=== PATIENT | female | born 1955 | race Hispanic/Latino ===

== ENCOUNTER 2018-01-11 01:26 | Emergency (ER) | payer BC, OTHER ==
[~2018-01-11] VITALS: Ht 154.9 cm; Wt 68.0 kg
--- OUTSIDE RECORDS SUMMARY | 2018-01-11 01:29 | XMS REPORT | Summary of Care ---
Author Author [facility] Organization [facility] Address Unknown Phone Unavailable Encounter SHA Ortiz(SUSAN) [id number] Date(s): 05/19/16 - 06/17/16 [facility] [address] [place] [address]- Discharge Disposition: Home or Self Care Attending Physician: Sarah Robles MD Referring Physician: Sarah Robles MD Vital Signs No data available for this section Problem List Condition Effective Dates Status Health Status Informant Knee pain(Confirmed) Active Benign essential Active HTN(Confirmed) Low serum vitamin Active D(Confirmed) 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 Previous Treatment: None. IV drug use: No. Drug use interferes with work/home: No. Ready to change: No. Household substance abuse concerns: No. Cessation Education Provided: No. Alcohol Never, Previous treatment: None. Alcohol use interferes with work or home: No. Drinks more than intended: No. Others hurt by drinking: No. Ready to change: No. Household alcohol concerns: No. Smoking Status Never smoker; Previous treatment: None; Ready to change: No; Concerns about tobacco use in household: No; Exposure to Tobacco Smoke None; Cigarette Smoking Last 365 Days No; Reg Smoking Cessation Counseling No Assessment and Plan No data available for this section
--- OUTSIDE RECORDS SUMMARY | 2018-01-11 01:29 | XMS REPORT | Summary of Care ---
Author Author [facility] Organization [facility] Address Unknown Phone Unavailable Encounter SHA Ortiz(SUSAN) [id number] Date(s): 07/02/16 - 07/02/16 [facility] [address] [place] [address]- [phone] Discharge Disposition: Home or Self Care Attending Physician: Evelio Carrillo MD Referring Physician: Evelio Carrillo MD Vital Signs 1 2 3 Most recent to oldest [Reference Range]: 157.48 cm (06/28/16 9:40 AM) Height 98.5 DegF (06/28/16 9:40 AM) Temperature Oral [96.4-99.1 DegF] 102/62 mmHg (07/02/16 10:00 AM) 87/46 mmHg *LOW* (07/02/16 9:45 AM) 85/49 mmHg *LOW* (07/02/16 9:41 AM) Blood Pressure [90-140/60-90 mmHg] 19 BRMIN (07/02/16 10:00 AM) 17 BRMIN (07/02/16 9:45 AM) 16 BRMIN (07/02/16 9:41 AM) Respiratory Rate [14-20 BRMIN] 60 bpm (06/28/16 9:40 AM) Peripheral Pulse Rate [60-100 bpm] 73.239 kg (06/28/16 9:40 AM) Weight 29.53 m2 (06/28/16 9:40 AM) Body Mass Index Problem List Condition Effective Dates Status Health Status Informant Knee pain(Confirmed) Active Benign essential Active HTN(Confirmed) Low serum vitamin Active D(Confirmed) Diabetes(Confirmed) Active 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 ) Acid Active reflux(Confirmed) Hypertension(Confirm Active ed) Language Active Barrier(Confirmed) Major Active depression(Confirmed ) Hyperlipidemia, Active mixed(Confirmed) Obesity(Confirmed) Active Thyroid disorder Active screen(Confirmed) Allergies, Adverse Reactions, Alerts Substance Reaction Severity Status NKDA Active Medications aspirin 81 mg, PO, Daily, 0 Refill(s) Start Date: 06/28/16 Status: Ordered sodium chloride 0.9% 1000 ml INJ 1,000 mL 1,000 mL, Rate: 25 ml/hr, Infuse over: 40 hr, Route: IV, Dosing Weight 73.239 kg , Total Volume: 1,000, Start date: 07/02/16 7:12:00 CDT, Duration: 30 day, Stop date: 08/01/16 7:11:00 CDT Start Date: 07/02/16 Stop Date: 07/02/16 Status: Discontinued Results ELECTROLYTES Most recent to 1 oldest [Reference Range]: Sodium Lvl [135-145 140 mEq/L mEq/L] (06/28/16 9:55 AM) Potassium Lvl 3.9 mEq/L [3.5-5.1 mEq/L] (06/28/16 9:55 AM) Chloride Lvl [95-109 102 mEq/L mEq/L] (06/28/16 9:55 AM) CO2 [24-32 mEq/L] 28 mEq/L (06/28/16 9:55 AM) AGAP [10.0-20.0 13.9 mEq/L mEq/L] (06/28/16 9:55 AM) CHEM PANEL Most recent to 1 oldest [Reference Range]: Creatinine Lvl 0.63 mg/dL [0.50-1.40 mg/dL] (06/28/16 9:55 AM) eGFR 96 mL/min/1.73m2 1 *NA* (06/28/16 9:55 AM) BUN [7-22 mg/dL] 14 mg/dL (06/28/16 9:55 AM) Glucose Lvl [70-99 108 mg/dL mg/dL] *HI* (06/28/16 9:55 AM) Calcium Lvl 9.7 mg/dL [8.5-10.5 mg/dL] (06/28/16 9:55 AM) 1Result Comment: The eGFR is calculated using the CKD-EPI formula. In most young, healthy individuals the eGFR will be >90 mL/min/1.73m2. The eGFR declines with age. An eGFR of 60-89 may be normal in some populations, particularly the elderly, for whom the CKD-EPI formula has not been extensively validated. Use of the eGFR is not recommended in the following populations: Individuals with unstable creatinine concentrations, including patients and those with serious co-morbid conditions. Patients with extremes in muscle mass or diet. The data above are obtained from the National Kid[employer] Disease Education Program ( NKDEP) which additionally recommends that when the eGFR is used in patients with extremes of body mass index for purposes of drug dosing, the eGFR should be mul tiplied by the estimated BMI. Immunizations No data available for this section Procedures Procedure Date Related Diagnosis Body Site Papanicolaou smear taken 2015 Mammogram 2013 Colonoscopy 2006 Social History Social History Type [...] alcohol concerns: No. Smoking Status Never smoker; Exposure to Tobacco Smoke None; Cigarette Smoking Last 365 Days No; Reg Smoking Cessation Counseling No Assessment and Plan No data available for this section
--- OUTSIDE RECORDS SUMMARY | 2018-01-11 01:29 | XMS REPORT | Summary of Care ---
Author Author [facility] Organization [facility] Address Unknown Phone Unavailable Encounter HQ Diana(SUSAN) [id number] Date(s): 08/15/16 - 08/19/16 [facility] [address] [place] [address]- Discharge Disposition: Home or Self Care Attending Physician: Evelio Baptiste MD Admitting Physician: Evelio Baptiste MD Vital Signs 1 2 3 Most recent to oldest [Reference Range]: 157.48 cm (08/16/16 12:53 AM) 157.48 cm (08/15/16 8:22 PM) Height 98.0 DegF (08/19/16 12:00 PM) 98.1 DegF (08/19/16 7:33 AM) 97.9 DegF (08/19/16 3:04 AM) Temperature Oral [96.4-99.1 DegF] 132/69 mmHg (08/19/16 12:00 PM) 127/73 mmHg (08/19/16 7:33 AM) 96/59 mmHg (08/19/16 3:04 AM) Blood Pressure [90-140/60-90 mmHg] 17 BRMIN (08/19/16 12:00 PM) 17 BRMIN (08/19/16 7:33 AM) 18 BRMIN (08/19/16 3:04 AM) Respiratory Rate [14-20 BRMIN] 70 bpm (08/19/16 12:00 PM) 72 bpm (08/19/16 7:33 AM) 61 bpm (08/19/16 3:04 AM) Peripheral Pulse Rate [60-100 bpm] 71.5 kg (08/19/16 9:47 AM) 71.5 kg (08/19/16 9:47 AM) 71.818 kg (08/16/16 12:53 AM) Weight 28.96 m2 (08/16/16 12:53 AM) 28.96 m2 (08/15/16 8:22 PM) Body Mass Index Problem List Condition Effective Dates Status Health Status Informant Knee pain(Confirmed) Active Benign essential Active HTN(Confirmed) Low serum vitamin Active D(Confirmed) Diabetes(Confirmed) Active 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 ) Fever(Confirmed) Active Acid Active reflux(Confirmed) Hyperlipemia(Confirm Resolved ed) Hypertension(Confirm Active ed) Frequent Active urination(Confirmed) Language Active Barrier(Confirmed) Major Active depression(Confirmed ) Hyperlipidemia, Active mixed(Confirmed) Obesity(Confirmed) Active Thyroid disorder Active screen(Confirmed) Allergies, Adverse Reactions, Alerts Substance Reaction Severity Status NKDA Active Medications RN-Do not give vanc till trough drawn08/19/16@15:30 RN-Do not give vanc till trough drawn08/19/16@15:30, Attn:RN, Drug form : MISC, Route: MISC, ONCE, 08/19/16 15:00:00 CDT, Stop date: 08/19/16 15:00:00 C DT Start Date: 08/19/16 Stop Date: 08/19/16 Status: Canceled acetaminophen 1,000 mg, 2 tab, Route: PO, Drug form: TAB, ONCE, Dosing Weight 71.818, kg, Prio rity: STAT, Start date: 08/15/16 20:27:00 CDT, Stop date: 08/15/16 20:27:00 CDT Notes: Max acetaminophen 4000 mg/day (4 gm/day). (Same as: Tylenol Extra Streng th) Start Date: 08/15/16 Stop Date: 08/15/16 Status: Completed acetaminophen 650 mg, 2 tab, Route: PO, Drug form: TAB, Q4H, Dosing Weight 71.818, kg, PRN Stella n 1-3/Temp > 100.4 F, Start date: 08/16/16 0:16:00 CDT, Duration: 30 day, Stop date: 09/15/16 0:15:00 CDT Notes: Do not exceed 4 gm/day. (Same as: Tylenol) Start Date: 08/16/16 Stop Date: 08/19/16 Status: Discontinued aspirin 81 mg, 1 tab, Route: PO, Drug form: CHEWTAB, Daily, Dosing Weight 71.818, kg, St art date: 08/16/16 15:00:00 CDT, Duration: 30 day, Stop date: 09/15/16 9:00:00 C DT Notes: Take with food. Start Date: 08/16/16 Stop Date: 08/19/16 Status: Discontinued Augmentin 875 mg oral tablet 875 mg=1 tab, PO, Q12H, X 7 day, # 14 tab, 0 Refill(s) Start Date: 08/19/16 Stop Date: 08/26/16 Status: Ordered azithromycin + sodium chloride 0.9% INJ 250 mL 500 mg, Route: IVPB, [id number], Dosing Weight 71.818, kg, Start date: 08/16/16 23: 00:00 CDT, Duration: 5 day, Stop date: 08/20/16 23:00:00 CDT, ABX Indication: Pn eumonia Notes: (Same As: Zithromax IV) Start Date: 08/16/16 Stop Date: 08/16/16 Status: Canceled azithromycin 500 mg oral tablet 500 mg, Route: PO, Drug form: TAB, ONCE, Dosing Weight 71.818, kg, Start date: 0 08/15/16 21:38:00 CDT, Duration: 1 doses or times, Stop date: 08/15/16 21:38:00 C DT, ABX Indication: Pneumonia Start Date: 08/15/16 Stop Date: 08/15/16 Status: Completed cefTRIAXone 1 gm, Route: IVPB, Drug form: PDR/INJ, ONCE, Dosing Weight 71.818, kg, Priority: STAT, Start date: 08/15/16 21:38:00 CDT, Duration: 1 doses or times, Stop date: 08/15/16 21:38:00 CDT, ABX Indication: Pneumonia Start Date: 08/15/16 Stop Date: 08/15/16 Status: Completed Cozaar 50 mg, 1 tab, Route: PO, Drug form: TAB, Daily, Start date: 08/17/16 9:00:00 CDT , Duration: 30 day, Stop date: 09/15/16 9:00:00 CDT Notes: (Same as: Jackson) Start Date: 08/17/16 Stop Date: 08/19/16 Status: Discontinued Dextrose 50% Syringe 12.5 gm, 25 mL, Route: IVP, Drug Form: INJ, Dosing Weight 71.818, kg, PRN, PRN B lood Glucose Results, Start date: 08/16/16 14:03:00 CDT, Duration: 30 day, Stop date: 09/15/16 14:02:00 CDT Start Date: 08/16/16 Stop Date: 08/19/16 Status: Discontinued Dextrose 50% Syringe 25 gm, 50 mL, Route: IVP, Drug Form: INJ, Dosing Weight 71.818, kg, PRN, PRN Blo od Glucose Results, Start date: 08/16/16 14:03:00 CDT, Duration: 30 day, Stop da te: 09/15/16 14:02:00 CDT Start Date: 08/16/16 Stop Date: 08/19/16 Status: Discontinued ezetimibe 10 mg, 1 tab, Route: PO, Drug form: TAB, Bedtime, Start date: 08/16/16 21:00:00 CDT, Duration: 30 day, Stop date: 09/14/16 21:00:00 CDT Notes: (Same as: Clara) Start Date: 08/16/16 Stop Date: 08/19/16 Status: Discontinued ezetimibe-simvastatin 40 1 tab, Route: PO, Dosing Weight 71.818, kg, Bedtime, Start date: 08/16/16 21:00: 00 CDT, Duration: 30 day, Stop date: 09/14/16 21:00:00 CDT Start Date: 08/16/16 Stop Date: 08/16/16 Status: Deleted glucagon 1 mg, Route: IM, Drug form: PDR/INJ, PRN, Dosing Weight 71.818, kg, PRN Blood Gl ucose Results, Start date: 08/16/16 14:03:00 CDT, Duration: 30 day, Stop date: 0 09/15/16 14:02:00 CDT Start Date: 08/16/16 Stop Date: 08/19/16 Status: Discontinued hydrochlorothiazide 25 mg oral tablet 12.5 mg, 1 tab, Route: PO, Drug form: TAB, Daily, Start date: 08/17/16 9:00:00 C DT, Duration: 30 day, Stop date: 09/15/16 9:00:00 CDT Notes: (Same as: Hydrodiuril). Give with food. Start Date: 08/17/16 Stop Date: 08/19/16 Status: Discontinued hydrochlorothiazide-losartan 12.5 mg-50 mg oral tablet 1 tab, PO, Daily, 0 Refill(s) Start Date: 08/16/16 Status: Ordered hydrochlorothiazide-losartan 12.5 mg-50 mg oral tablet 1 tab, Route: PO, Drug Form: TAB, Dosing Weight 71.818, kg, Daily, Start date: 0 08/17/16 9:00:00 CDT, Duration: 30 day, Stop date: 09/15/16 9:00:00 CDT Start Date: 08/17/16 Stop Date: 08/16/16 Status: Deleted insulin aspart 4 unit, 0.04 mL, Route: SUB-Q, Drug form: SOLN, Bedtime, Dosing Weight 71.818, k g, PRN Blood Glucose Results, Start date: 08/16/16 14:03:00 CDT, Duration: 30 da y, Stop date: 09/15/16 14:02:00 CDT Notes: Roll in palms of hands gently; Do not shake vigorously. (Same as: Houston Frazier)"single patient use only"WASTE: F/P - Black; E - Municipal Trash Bin Stable f or 28 days at room temperature.Expires in days from Date Start Date: 08/16/16 Stop Date: 08/19/16 Status: Discontinued insulin aspart 3 unit, 0.03 mL, Route: SUB-Q, Drug form: SOLN, Bedtime, Dosing Weight 71.818, k g, PRN Blood Glucose Results, Start date: 08/16/16 14:03:00 CDT, Duration: 30 da y, Stop date: 09/15/16 14:02:00 CDT Notes: Roll in palms of hands gently; Do not shake vigorously. (Same as: NovoCARLOS Frazier)"single patient use only"WASTE: F/P - Black; E - Municipal Trash Bin Stable f or 28 days at room temperature.Expires in days from Date Start Date: 08/16/16 Stop Date: 08/19/16 Status: Discontinued insulin aspart 1 unit, 0.01 mL, Route: SUB-Q, Drug form: SOLN, Bedtime, Dosing Weight 71.818, k g, PRN Blood Glucose Results, Start date: 08/16/16 14:03:00 CDT, Duration: 30 da y, Stop date: 09/15/16 14:02:00 CDT Notes: Roll in palms of hands gently; Do not shake vigorously. (Same as: Houston Frazier)"single patient use only"WASTE: F/P - Black; E - Municipal Trash Bin Stable f or 28 days at room temperature.Expires in days from Date Start Date: 08/16/16 Stop Date: 08/19/16 Status: Discontinued insulin aspart 2 unit, 0.02 mL, Route: SUB-Q, Drug form: SOLN, Bedtime, Dosing Weight 71.818, k g, PRN Blood Glucose Results, Start date: 08/16/16 14:03:00 CDT, Duration: 30 da y, Stop date: 09/15/16 14:02:00 CDT Notes: Roll in palms of hands gently; Do not shake vigorously. (Same as: Houston Frazier)"single patient use only"WASTE: F/P - Black; E - Municipal Trash Bin Stable f or 28 days at room temperature.Expires in days from Date Start Date: 08/16/16 Stop Date: 08/19/16 Status: Discontinued insulin aspart 1 unit, 0.01 mL, Route: SUB-Q, Drug form: SOLN, TID-Before Meals, Dosing Weight 71.818, kg, PRN Blood Glucose Results, Start date: 08/16/16 14:03:00 CDT, Durati on: 30 day, Stop date: 09/15/16 14:02:00 CDT Notes: Roll in palms of hands gently; Do not shake vigorously. (Same as: NovoCARLOS Frazier)"single patient use only"WASTE: F/P - Black; E - Municipal Trash Bin Stable f or 28 days at room temperature.Expires in days from Date Start Date: 08/16/16 Stop Date: 08/19/16 Status: Discontinued insulin aspart 2 unit, 0.02 mL, Route: SUB-Q, Drug form: SOLN, TID-Before Meals, Dosing Weight 71.818, kg, PRN Blood Glucose Results, Start date: 08/16/16 14:03:00 CDT, Durati on: 30 day, Stop date: 09/15/16 14:02:00 CDT Notes: Roll in palms of hands gently; Do not shake vigorously. (Same as: NovoCARLOS G)"single patient use only"WASTE: F/P - Black; E - Municipal Trash Bin Stable f or 28 days at room temperature.Expires in days from Date Start Date: 08/16/16 Stop Date: 08/19/16 Status: Discontinued insulin aspart 4 unit, 0.04 mL, Route: SUB-Q, Drug form: SOLN, TID-Before Meals, Dosing Weight 71.818, kg, PRN Blood Glucose Results, Start date: 08/16/16 14:03:00 CDT, Durati on: 30 day, Stop date: 09/15/16 14:02:00 CDT Notes: Roll in palms of hands gently; Do not shake vigorously. (Same as: NovoCARLOS Frazier)"single patient use only"WASTE: F/P - Black; E - Municipal Trash Bin Stable f or 28 days at room temperature.Expires in days from Date Start Date: 08/16/16 Stop Date: 08/19/16 Status: Discontinued insulin aspart 3 unit, 0.03 mL, Route: SUB-Q, Drug form: SOLN, TID-Before Meals, Dosing Weight 71.818, kg, PRN Blood Glucose Results, Start date: 08/16/16 14:03:00 CDT, Durati on: 30 day, Stop date: 09/15/16 14:02:00 CDT Notes: Roll in palms of hands gently; Do not shake vigorously. (Same as: NovoCARLOS G)"single patient use only"WASTE: F/P - Black; E - Municipal Trash Bin Stable f or 28 days at room temperature.Expires in days from Date Start Date: 08/16/16 Stop Date: 08/19/16 Status: Discontinued insulin aspart 5 unit, 0.05 mL, Route: SUB-Q, Drug form: SOLN, TID-Before Meals, Dosing Weight 71.818, kg, PRN Blood Glucose Results, Start date: 08/16/16 14:03:00 CDT, Durati on: 30 day, Stop date: 09/15/16 14:02:00 CDT Notes: Roll in palms of hands gently; Do not shake vigorously. (Same as: NovoCARLOS G)"single patient use only"WASTE: F/P - Black; E - Municipal Trash Bin Stable f or 28 days at room temperature.Expires in days from Date Start Date: 08/16/16 Stop Date: 08/19/16 Status: Discontinued lactulose 10 g/15 mL oral syrup 20 gm, 30 mL, Route: PO, Drug form: SYRP, ONCE, Dosing Weight 71.818, kg, Start date: 08/18/16 13:44:00 CDT, Stop date: 08/18/16 13:44:00 CDT Notes: (Same as:Chronulac) Start Date: 08/18/16 Stop Date: 08/18/16 Status: Completed Lasix 20 mg, 2 mL, Route: IVP, Drug form: INJ, ONCE, Dosing Weight 71.818, kg, Start d ate: 08/17/16 15:02:00 CDT, Stop date: 08/17/16 15:02:00 CDT Notes: (Same as: Lasix) Start Date: 08/17/16 Stop Date: 08/17/16 Status: Completed Levaquin 750 mg, 150 mL, Route: IVPB, Drug form: SOLN, [id number], Dosing Weight 71.818, kg, For CrCl > 49ml/min, Start date: 08/16/16 14:00:00 CDT, Duration: 7 day, Stop date: 08/22/16 14:00:00 CDT, ABX Indication: Pneumonia Notes: (Same as:Levaquin) Start Date: 08/16/16 Stop Date: 08/19/16 Status: Discontinued Levaquin 750 mg oral tablet 750 mg=1 tab, PO, Q24H, X 7 day, # 7 tab, 0 Refill(s) Start Date: 08/19/16 Stop Date: 08/26/16 Status: Ordered Motrin 400 mg, 1 tab, Route: PO, Drug form: TAB, ONCE, Dosing Weight 71.818, kg, Priori ty: STAT, Start date: 08/15/16 20:27:00 CDT, Stop date: 08/15/16 20:27:00 CDT Notes: (Same as: Motrin)"Do Not Crush" Give with food. Start Date: 08/15/16 Stop Date: 08/15/16 Status: Completed ondansetron 4 mg, 2 mL, Route: IVP, Drug form: INJ, Q6H, Dosing Weight 71.818, kg, PRN Nause a & Vomiting, Start date: 08/16/16 0:16:00 CDT, Duration: 30 day, Stop date: 09/15/16 0:15:00 CDT Notes: (Same as: Judithfran) MEDICATION WASTE Product Size: 4 mgProduct Was lili: ___ mg Start Date: 08/16/16 Stop Date: 08/19/16 Status: Discontinued pneumococcal 23-valent vaccine 0.5 mL, Route: IM, Drug Form: INJ, Daily, Start date: 08/16/16 9:00:00 CDT, Stop date: 08/16/16 17:00:00 CDT Notes: (Same as: Pneumovax 23) Refrigerate Start Date: 08/16/16 Stop Date: 08/16/16 Status: Completed potassium chloride 40 mEq, 2 tab, Route: PO, Drug form: ERTAB, ONCE, Dosing Weight 71.818, kg, Star t date: 08/19/16 8:23:00 CDT, Stop date: 08/19/16 8:23:00 CDT Notes: (Same as: K-Dur 20)"Do Not Crush" With food and full glass of water Start Date: 08/19/16 Stop Date: 08/19/16 Status: Completed potassium chloride 40 mEq, 2 tab, Route: PO, Drug form: ERTAB, ONCE, Dosing Weight 71.818, kg, Star t date: 08/18/16 8:45:00 CDT, Stop date: 08/18/16 8:45:00 CDT Notes: (Same as: K-Dur )"Do Not Crush" With food and full glass of water Start Date: 08/18/16 Stop Date: 08/18/16 Status: Completed Reglan 10 mg, Route: IVP, Drug form: INJ, ONCE, Dosing Weight 71.818, kg, Priority: STA T, Start date: 08/15/16 21:39:00 CDT, Stop date: 08/15/16 21:39:00 CDT Start Date: 08/15/16 Stop Date: 08/15/16 Status: Completed Robitussin 100 mg/5 mL oral liquid 100 mg, 5 mL, Route: PO, Drug form: LIQ, Q4H, Dosing Weight 71.818, kg, PRN Coug h, Start date: 08/16/16 14:01:00 CDT, Duration: 30 day, Stop date: 09/15/16 14:0 0:00 CDT Notes: (Same as: Robitussin) Start Date: 08/16/16 Stop Date: 08/19/16 Status: Discontinued Rocephin + sodium chloride 0.9% INJ 100 mL 1 gm, Route: IVPB, [id number], Dosing Weight 71.818, kg, Start date: 08/16/16 21:00 :00 CDT, Duration: 7 day, Stop date: 08/22/16 21:00:00 CDT, ABX Indication: Pneu monia Notes: (Same As: Rocephin).Use with 100 mL NS and infuse over 30 min MEDICA TION WASTE Product Size: 1000 mgProduct Wasted: ___ mg Start Date: 08/16/16 Stop Date: 08/16/16 Status: Canceled Saline Flush 0.9% 10 ml, Route: IVP, Drug Form: INJ, Dosing Weight 71.818, kg, PRN, PRN Line Flush , Start date: 08/16/16 0:16:00 CDT, Duration: 30 day, Stop date: 09/15/16 0:15:0 0 CDT Notes: (Same as: BD Posiflush) Start Date: 08/16/16 Stop Date: 08/19/16 Status: Discontinued sertraline 50 mg, 1 tab, Route: PO, Drug form: TAB, Daily, Dosing Weight 71.818, kg, Start date: 08/16/16 14:30:00 CDT, Duration: 30 day, Stop date: 09/15/16 9:00:00 CDT Notes: (Same as: Zoloft) Start Date: 08/16/16 Stop Date: 08/19/16 Status: Discontinued sodium chloride 0.9% 1000 ml INJ 1,000 mL 1,000 mL, Rate: 75 ml/hr, Infuse over: 13.3 hr, Route: IV, Dosing Weight 71.818 kg, Total Volume: 1,000, Start date: 08/16/16 0:16:00 CDT, Duration: 30 day, Sto p date: 09/15/16 0:15:00 CDT Start Date: 08/16/16 Stop Date: 08/17/16 Status: Discontinued Sodium Chloride 0.9% IV 1000 mL 1,000 mL, Rate: 1,000 ml/hr, Infuse over: 1 hr, Route: IV, Dosing Weight 71.818 kg, Total Volume: 1,000, Priority: STAT, Start date: 08/15/16 23:07:00 CDT, Dura tion: 1 doses or times, Stop date: 08/16/16 0:06:00 CDT Start Date: 08/15/16 Stop Date: 08/15/16 Status: Completed Tessalon Perles 200 mg, 2 cap, Route: PO, Drug form: CAP, TID, Dosing Weight 71.818, kg, PRN Cou gh, Start date: 08/18/16 13:44:00 CDT, Duration: 30 day, Stop date: 09/17/16 13: 43:00 CDT Notes: (Same As: Louie Martinez)"Do Not Crush" Start Date: 08/18/16 Stop Date: 08/19/16 Status: Discontinued vancomycin 1.25 gm, 250 mL, Route: IVPB, Drug form: INJ, [id number], Start date: 08/18/16 4:00 :00 CDT, Duration: 30 day, Stop date: 09/16/16 16:00:00 CDT, ABX Indication: Pne umonia Notes: TIME CRITICAL MEDICATIONSame as: Vancocin-NS (premixed)Infusion rate< 1000 mg: infuse over 1 [id number] - 1500 mg: infuse over 1.5 [id number] - 2000 mg: infuse over 2 hours> 2001 mg: infuse over 2.5 hours Start Date: 08/18/16 Stop Date: 08/19/16 Status: Discontinued vancomycin + sodium chloride 0.9% 500 mL INJ (for IV set) 500 mL 1,750 mg, Route: IVPB, ONCE, Start date: 08/17/16 16:00:00 CDT, Stop date: 08/17 16:00:00 CDT, ABX Indication: Pneumonia Notes: TIME CRITICAL MEDICATION(Same As: Vancocin)Infusion rate< 1000 mg: infuse over 1 [id number] - 1500 mg: infuse over 1.5 [id number] - 2000 mg: infuse over 2 hours> 2001 mg: infuse over 2.5 hours MEDICATION WASTE Product Size: 1000 mgProduct Wasted: ___ mg Start Date: 08/17/16 Stop Date: 08/17/16 Status: Completed Vancomycin Pharmacy Dosing 1 ea, Route: MISC, ONCALL, Dosing Weight 71.818, kg, Start date: 08/17/16 16:00: 00 CDT, day, Stop date: 08/17/16 16:00:00 CDT, Pharmacy to dose, ABX Indication: Pneumonia Start Date: 08/17/16 Stop Date: 08/17/16 Status: Deleted Zocor 40 mg, 1 tab, Route: PO, Drug form: TAB, Bedtime, Start date: 08/16/16 21:00:00 CDT, Duration: 30 day, Stop date: 09/14/16 21:00:00 CDT Notes: (Same as: Zocor) Start Date: 08/16/16 Stop Date: 08/19/16 Status: Discontinued Results ELECTROLYTES 1 2 3 Most recent to oldest [Reference Range]: 140 mEq/L (08/19/16 5:21 AM) 139 mEq/L (08/18/16 5:06 AM) 136 mEq/L (08/17/16 11:50 AM) Sodium Lvl [135-145 mEq/L] 3.4 mEq/L *LOW* (08/19/16 5:21 AM) 3.1 mEq/L *LOW* (08/18/16 5:06 AM) 3.5 mEq/L (08/17/16 11:50 AM) Potassium Lvl [3.5-5.1 mEq/L] 104 mEq/L (08/19/16 5:21 AM) 102 mEq/L (08/18/16 5:06 AM) 101 mEq/L (08/17/16 11:50 AM) Chloride Lvl [95-109 mEq/L] 29 mEq/L (08/19/16 5:21 AM) 28 mEq/L (08/18/16 5:06 AM) 27 mEq/L (08/17/16 11:50 AM) CO2 [24-32 mEq/L] 10.4 mEq/L (08/19/16 5:21 AM) 12.1 mEq/L (08/18/16 5:06 AM) 11.5 mEq/L (08/17/16 11:50 AM) AGAP [10.0-20.0 mEq/L] CHEM PANEL 1 2 3 Most recent to oldest [Reference Range]: 0.63 mg/dL (08/19/16 5:21 AM) 0.69 mg/dL (08/18/16 5:06 AM) 0.69 mg/dL (08/17/16 11:50 AM) Creatinine Lvl [0.50-1.40 mg/dL] 96 mL/min/1.73m2 1 *NA* (08/19/16 5:21 AM) 94 mL/min/1.73m2 2 *NA* (08/18/16 5:06 AM) 94 mL/min/1.73m2 3 *NA* (08/17/16 11:50 AM) eGFR 13 mg/dL (08/19/16 5:21 AM) 14 mg/dL (08/18/16 5:06 AM) 14 mg/dL (08/17/16 11:50 AM) BUN [7-22 mg/dL] 21 (08/16/16 3:51 AM) 18 (08/15/16 9:17 PM) B/C Ratio [6-25] 105 mg/dL *HI* (08/19/16 5:21 AM) 120 mg/dL *HI* (08/18/16 5:06 AM) 90 mg/dL (08/17/16 11:50 AM) Glucose Lvl [70-99 mg/dL] 7.1 g/dL (08/16/16 3:51 AM) 7.4 g/dL (08/15/16 9:17 PM) Total Protein [6.4-8.4 g/dL] 2.6 g/dL *LOW* (08/16/16 3:51 AM) 3.0 g/dL *LOW* (08/15/16 9:17 PM) Albumin Lvl [3.5-5.0 g/dL] 4.5 g/dL *HI* (08/16/16 3:51 AM) 4.4 g/dL *HI* (08/15/16 9:17 PM) Globulin [2.7-4.2 g/dL] 0.6 *LOW* (08/16/16 3:51 AM) 0.7 (08/15/16 9:17 PM) A/G Ratio [0.7-1.6] 9.3 mg/dL (08/19/16 5:21 AM) 8.9 mg/dL (08/18/16 5:06 AM) 9.4 mg/dL (08/17/16 11:50 AM) Calcium Lvl [8.5-10.5 mg/dL] 54 unit/L (08/16/16 3:51 AM) 54 unit/L (08/15/16 9:17 PM) ALT [0-65 unit/L] 71 unit/L *HI* (08/16/16 3:51 AM) 65 unit/L *HI* (08/15/16 9:17 PM) AST [0-37 unit/L] 130 unit/L (08/16/16 3:51 AM) 136 unit/L (08/15/16 9:17 PM) Alk Phos [39-136 unit/L] 0.3 mg/dL (08/16/16 3:51 AM) 0.3 mg/dL (08/15/16 9:17 PM) Bili Total [0.2-1.3 mg/dL] 0.9 mMol/L (08/15/16 9:17 PM) Lactic Acid Lvl [0.5-2.2 mMol/L] 1Result Comment: The eGFR is calculated using [...] be mul tiplied by the estimated BMI. 2Result Comment: The eGFR is calculated using the [...] be mul tiplied by the estimated BMI. 3Result Comment: The eGFR is calculated using the [...] be mul tiplied by the estimated BMI. CARDIAC ENZYMES 1 2 3 Most recent to oldest [Reference Range]: 97 unit/L (08/15/16 9:17 PM) Total CK [12-191 unit/L] <0.02 ng/mL (08/16/16 1:03 PM) <0.02 ng/mL (08/16/16 3:51 AM) <0.02 ng/mL (08/15/16 9:17 PM) Troponin-I [0.00-0.40 ng/mL] URINE AND STOOL 1 2 3 Most recent to oldest [Reference Range]: Clear (08/15/16 10:16 PM) UA Turbidity [Clear] Yellow *NA* (08/15/16 10:16 PM) UA Color [Yellow] 5.0 (08/15/16 10:16 PM) UA pH [5.0-8.0] 1.016 (08/15/16 10:16 PM) UA Spec Grav [<=1.030] Negative mg/dL *NA* (08/15/16 10:16 PM) UA Glucose [Negative mg/dL] Large *ABN* (08/15/16 10:16 PM) UA Blood [Negative] Negative mg/dL *NA* (08/15/16 10:16 PM) UA Ketones [Negative mg/dL] Negative mg/dL (08/15/16 10:16 PM) UA Protein [Negative mg/dL] <=1.0 mg/dL *NA* (08/15/16 10:16 PM) UA Urobilinogen [0.1-1.0 mg/dL] Negative *NA* (08/15/16 10:16 PM) UA Bili [Negative] Large *ABN* (08/15/16 10:16 PM) UA Leuk Est [Negative] Negative (08/15/16 10:16 PM) UA Nitrite [Negative] 77 /HPF *HI* (08/15/16 10:16 PM) UA WBC [0-5 /HPF] 17 /HPF *HI* (08/15/16 10:16 PM) UA RBC [0-2 /HPF] Occasional /HPF *NA* (08/15/16 10:16 PM) UA Bacteria [None Seen /HPF] Occasional /LPF *NA* (08/15/16 10:16 PM) UA Sq Epi [Few /LPF] 5 /LPF *HI* (08/15/16 10:16 PM) UA Hyal Cast [0-2 /LPF] HEMATOLOGY 1 2 3 Most recent to oldest [Reference Range]: 7.3 K/CMM (08/19/16 5:21 AM) 6.8 K/CMM (08/18/16 5:06 AM) 7.9 K/CMM (08/17/16 11:50 AM) WBC [3.7-10.4 K/CMM] 3.41 M/CMM *LOW* (08/19/16 5:21 AM) 3.27 M/CMM *LOW* (08/18/16 5:06 AM) 3.36 M/CMM *LOW* (08/17/16 11:50 AM) RBC [4.20-5.40 M/CMM] 9.8 g/dL *LOW* (08/19/16 5:21 AM) 9.4 g/dL *LOW* (08/18/16 5:06 AM) 9.6 g/dL *LOW* (08/17/16 11:50 AM) Hgb [12.0-16.0 g/dL] 29.3 % *LOW* (08/19/16 5:21 AM) 27.8 % *LOW* (08/18/16 5:06 AM) 28.9 % *LOW* (08/17/16 11:50 AM) Hct [36.0-48.0 %] 85.9 fL (08/19/16 5:21 AM) 85.2 fL (08/18/16 5:06 AM) 86.0 fL (08/17/16 11:50 AM) MCV [80.0-98.0 fL] 28.6 pg (08/19/16 5:21 AM) 28.9 pg (08/18/16 5:06 AM) 28.5 pg (08/17/16 11:50 AM) MCH [27.0-31.0 pg] 33.3 g/dL (08/19/16 5:21 AM) 33.9 g/dL (08/18/16 5:06 AM) 33.1 g/dL (08/17/16 11:50 AM) MCHC [32.0-36.0 g/dL] 14.1 % (08/19/16 5:21 AM) 14.0 % (08/18/16 5:06 AM) 14.2 % (08/17/16 11:50 AM) RDW [11.5-14.5 %] 286 K/CMM (08/19/16 5:21 AM) 222 K/CMM (08/18/16 5:06 AM) 225 K/CMM (08/17/16 11:50 AM) Platelet [133-450 K/CMM] 8.5 fL (08/19/16 5:21 AM) 8.6 fL (08/18/16 5:06 AM) 8.3 fL (08/17/16 11:50 AM) MPV [7.4-10.4 fL] 75.3 % *HI* (08/16/16 3:51 AM) 72.9 % (08/15/16 9:17 PM) Segs [45.0-75.0 %] 16.8 % *LOW* (08/16/16 3:51 AM) 18.8 % *LOW* (08/15/16 9:17 PM) Lymphocytes [20.0-40.0 %] 6.8 % (08/16/16 3:51 AM) 7.5 % (08/15/16 9:17 PM) Monocytes [2.0-12.0 %] 0.4 % (08/16/16 3:51 AM) 0.2 % (08/15/16 9:17 PM) Eosinophils [0.0-4.0 %] 0.7 % (08/16/16 3:51 AM) 0.6 % (08/15/16 9:17 PM) Basophils [0.0-1.0 %] 11.0 K/CMM *HI* (08/16/16 3:51 AM) 6.7 K/CMM (08/15/16 9:17 PM) Segs-Bands # [1.5-8.1 K/CMM] 2.5 K/CMM (08/16/16 3:51 AM) 1.7 K/CMM (08/15/16 9:17 PM) Lymphocytes # [1.0-5.5 K/CMM] 1.0 K/CMM *HI* (08/16/16 3:51 AM) 0.7 K/CMM (08/15/16 9:17 PM) Monocytes # [0.0-0.8 K/CMM] 0.1 K/CMM (08/16/16 3:51 AM) Eosinophils # [0.0-0.5 K/CMM] 0.1 K/CMM (08/16/16 3:51 AM) 0.1 K/CMM (08/15/16 9:17 PM) Basophils # [0.0-0.2 K/CMM] VIRAL - SEROLOGY 1 2 3 Most recent to oldest [Reference Range]: Negative (08/15/16 9:17 PM) Influ A [Negative] Negative (08/15/16 9:17 PM) Influ B [Negative] Immunizations Not Given Vaccine Date Status Refusal Reason pneumococcal 23-valent vaccine 08/17/16 Not Given Patient Refuses Procedures Procedure Date Related Diagnosis Body Site Papanicolaou smear taken 2016 Mammogram 2014 Colonoscopy 2006 section Social History Social History Type Response Substance [...] household: No; Exposure to Tobacco Smoke None; Lives with someone who smokes; Cigarette Smoking Last 365 Days No; Reg Smoking Cessation Counseling No Assessment and Plan Extracted from: Title: Clinical Document Author: Evelio Baptiste MD Date: 08/19/16 Date of admission: 08/16/2016 Date of discharge: 08/19/2016 Discharge diagnosis: 1. Pneumonia 2. Urinary tract infection. Hospital course: Ms. Abarca is a 60-year-old woman with past medical history of diabetes mellitus who presented initially with shortness of breath and a fever of 103.9. Chest x-ray showed left lung opacity that was concerning for pneumonia. Patient was started on broad-spectrum IV antibiotics. Her symptoms improved. She was also found to have asymptomatic bacteriuria. Urine cultures grew enterococcus. After 2-3 days of inpatient hospital stay, patient had a much better fever profile. Her symptoms had improved although she continued to have a dry cough. I explained the findings to the patient and the daughter who is a primary pharmacy service associate. Patient will be treated with Levaquin/Augmentin for the pneumonia/enterococcus urinary tract infection. I also explained to the family that patient will need a follow-up CT or chest x-ray in a few weeks to make sure that the pneumonia has resolved and there are no underlying lesions. Family have verbalized understanding. Patient to follow-up as outpatient. Physical examination Vitals: Blood pressure 132/69, temperature 98.0, heart rate 70, respiration 1918, 94% on room air General: Awake alert oriented 3 no acute distress Cardiovascular: Regular rate rhythm S1-S2 Neurologic: No facial asymmetry. Lungs: Clear to auscultation bilaterally. Abdomen: Soft nontender no rebound or guarding. Extremities: No peripheral edema. Discharge condition: Stable Discharge to: Home Discharge recommended diet: Diabetic diet. Discharge medications: See discharge medicine reconciliation form. Activity as tolerated. Follow-up with primary care physician. Extracted from: Title: Clinical Document Author: Evelio Baptiste MD Date: 08/18/16 Progress Note - Daily [facility] Completed: Aug, 07:17 by Evelio Baptiste MD RM: 106 - 2W, SE [id number] (: 1955) F Attending[facility] Service: [facility] Medicine Reason for Admission: PNEUMONIA, UTI Working DRG: None Documented Code status: None Specified=FULL CODECurrent diet: Isolation: None Documented Allergies: NKDA SUBJECTIVE 24hr Labs 08/19 0521 Glucose Fek332 H BUN13 Creatinine Lvl0.63 Sodium Tmk526 Potassium Lvl3.4 L Chloride Dfk773 CO229 AGAP10.4 Calcium Lvl9.3 eGFR96 WBC7.3 RBC3.41 L Hgb9.8 L Hct29.3 L MCV85.9 MCH28.6 MCHC33.3 RDW14.1 Qpmfhfta391 MPV8.5 08/19 0306 Glucose HCM409 H 08/18 2041 Glucose POC99 08/18 1500 Glucose POC99 08/18 1104 Glucose MPF818 H 08/18 0730 Glucose NLY482 H Smith still necessary (Yes/No): Line still necessary (Yes/No): VitalsTmp(F)QywbdAZIMRzX8XTX7 08/19 03:0497.98279/044944--- 08/18 23:0398.626355/554378--- 08/18 19:2098.273365/230662--- 08/18 15:0598.954732/015251--- 08/18 11:3799.390230/174820--- 24 Hr Tmax: 100.4F (38.00c) at 08/18 07:28Vital Signs are the last 5 in the past 48 hours. DateWt(kg)Wt(lb)Ht(cm)Ht(in)Method 08/16 71.82 158.78862.48 62.00Estimated 08/15 (initial) 71.82 158.00Measured 08/15157.48 62.00Stated I&ORecordInOutBal 4hr Tot 3140 0 3140 1124hr Tot 2287 0 2287 Medications (28) Active Scheduled Meds (8): 08/16/16 aspirin 81 mg PO Daily 08/16/16 ezetimibe 10 mg PO Bedtime 08/17/16 hydrochlorothiazide (hydrochlorothiazide 25 mg oral tablet) 12.5 mg PO Daily 08/16/16 levofloxacin (Levaquin) 750 mg IVPB OVCW47P 100 ml/hr 08/17/16 losartan (Cozaar) 50 mg PO Daily 08/16/16 sertraline 50 mg PO Daily 08/16/16 simvastatin (Zocor) 40 mg PO Bedtime 08/18/16 vancomycin 1.25 gm IVPB FHMX21V 166.67 ml/hr Unscheduled Meds: None PRN Meds (17): 08/16/16 Dextrose 50% in Water IV (Dextrose 50% Syringe) 12.5 gm IVP PRN 08/16/16 Dextrose 50% in Water IV (Dextrose 50% Syringe) 25 gm IVP PRN 08/16/16 acetaminophen 650 mg PO Q4H 08/18/16 benzonatate (Tessalon Perles) 200 mg PO TID 08/16/16 glucagon 1 mg IM PRN 08/16/16 guaiFENesin (Robitussin 100 mg/5 mL oral liquid) 100 mg PO Q4H 08/16/16 insulin aspart 1 unit SUB-Q TID-Before Meals 08/16/16 insulin aspart 2 unit SUB-Q TID-Before Meals 08/16/16 insulin aspart 3 unit SUB-Q TID-Before Meals 08/16/16 insulin aspart 4 unit SUB-Q TID-Before Meals 08/16/16 insulin aspart 5 unit SUB-Q TID-Before Meals 08/16/16 insulin aspart 1 unit SUB-Q Bedtime 08/16/16 insulin aspart 2 unit SUB-Q Bedtime 08/16/16 insulin aspart 3 unit SUB-Q Bedtime 08/16/16 insulin aspart 4 unit SUB-Q Bedtime 08/16/16 ondansetron 4 mg IVP Q6H 08/16/16 sodium chloride (Saline Flush 0.9%) 10 ml IVP PRN One Time Meds (3): 08/18/16 (Completed) lactulose (lactulose 10 g/15 mL oral syrup) 20 gm PO ONCE 08/19/16 (Ordered) non-formulary (RN-Do not give vanc till trough drawn08/19/16@15:30) MISC ONCE 08/18/16 (Completed) potassium chloride 40 mEq PO ONCE Continuous Infusions: None ASSESSMENT & EXAM PLAN & TREATMENT DIAGNOSES & PROBLEMS Ready for Discharge (Yes/No)? TEACHING ATTESTATION Extracted from: Title: Clinical Document Author: Katt Jimenez MD Date: 08/16/16 HISTORY AND PHYSICAL CHIEF COMPLAINT: Shortness of breath. HISTORY OF PRESENT ILLNESS: A 60-year-old female patient with past medical history of hypertension, diabetes mellitus, dyslipidemia. The patient had a recent diagnosis of diabetes mellitus. She presented with 3 days of recurrent, worsening cough, associated with subjective fever and chills. Today she checked her temperature and found it to be at 103.9 at home. She also reports mild shortness of breath. She had no chest pain, orthopnea or PND. The patient presented to the ER with those complaints. She denied having abdominal pain, nausea, vomiting. She had no diarrhea or constipation. The patient denies melena. She had no hematemesis. Workup in the ER was concerning for pneumonia. The patient also was felt to have possibly a urinary tract infection. The her blood pressure was low in the 80s. She will be admitted to the hospital for further management and further recommendations. PAST MEDICAL HISTORY: As listed above. PAST SURGICAL HISTORY: Colonoscopy. ALLERGIES: NO KNOWN DRUG ALLERGIES. HOME MEDICATIONS: Home medications are found on the reconciliation form. SOCIAL HISTORY: Denies smoking, alcohol or drug abuse. FAMILY HISTORY: Hypertension in both parents. [place] in the patient's father. REVIEW OF SYSTEMS: Per HPI. PHYSICAL EXAMINATION: GENERAL: Awake, cooperative with exam. No apparent distress. VITAL SIGNS: 103.3, 98, 20, 96%, 119/67. HEAD AND NECK: No signs of trauma. Pupils are reactive to light bilaterally. Neck supple. No JVD. CHEST: Few scattered rhonchi. CARDIOVASCULAR: Regular rhythm. No S3 or S4. ABDOMEN: Soft, nontender, nondistended. No organomegaly. EXTREMITIES: No clubbing or cyanosis. No edema. NEUROLOGIC: Examination is nonfocal. DIAGNOSTICS: Sodium 132, potassium 3.5, creatinine 1.1. AST is 65. WBC of 9.2, hemoglobin 11.4, platelet count 198. Troponin is 0.02. Urinalysis: 77 WBCs per high power field, 17 RBCs. Positive leukocyte esterase. Chest x-ray: Right lung clear. Extensive left upper lobe and lingular pneumonia. Extensive opacity in the lingula. IMPRESSION: 1. Community-acquired pneumonia. 2. Borderline to low blood pressure, improved with IV fluid in the Emergency Room. PLAN: 1. Start the patient on IV fluid and admit to the hospital. 2. Monitor on telemetry. 3. Replace cardiac enzymes. 4. Rocephin. 5. Azithromycin. 6. Follow up on blood cultures. Katt Jimenez MD Date Dictated: 08/16/2016 Date Transcribed: 08/16/2016 GERDA/SHONDA
--- OUTSIDE RECORDS SUMMARY | 2018-01-11 01:29 | XMS REPORT | Summary of Care ---
Author Author [facility] Organization [facility] Address Unknown Phone Unavailable Encounter HQ Diana(SUSAN) [id number] Date(s): 04/07/16 - 05/06/16 [facility] [address] [place] [address]- [phone] Discharge Disposition: Home or Self Care Attending Physician: Sarah Robles MD Referring Physician: Sarah Robles MD Vital Signs No data available for this section Problem List Condition Effective Dates Status Health Status Informant Obesity(Confirmed) Active Allergies, Adverse Reactions, Alerts Substance Reaction Severity [...]
--- OUTSIDE RECORDS SUMMARY | 2018-01-11 01:29 | XMS REPORT | Summary of Care ---
Author Author [facility] Organization [facility] Address Unknown Phone Unavailable Encounter SHA Ortiz(SUSAN) [id number] Date(s): 05/27/16 - 05/27/16 [facility] [address] [place] [address]- Discharge Disposition: Home or Self Care Attending Physician: Sarah Robles MD Vital Signs No [...]
--- OUTSIDE RECORDS SUMMARY | 2018-01-11 01:29 | XMS REPORT | Summary of Care ---
Author Author [facility] Organization [facility] Address Unknown Phone Unavailable Encounter HQ Diana(SUSAN) [id number] Date(s): 03/30/16 - 03/30/16 [facility] [address] [place] [address]- [phone] Discharge Disposition: Home or Self Care Attending [...]
--- OUTSIDE RECORDS SUMMARY | 2018-01-11 01:29 | XMS REPORT | Continuity of Care Document ---
Author Author [facility] Interface Address Unknown Phone Unavailable Problems Problem Status Onset Date Classification Date Reported Comments Source PNEUMONIA, UTI Active 08/15/2016 [facility] PNEUMONIA,UTI Active 08/15/2016 [facility] FEVER Active 08/15/2016 [facility] KNEE PAIN Active 05/27/2016 [facility] OBESITY Active 05/19/2016 [facility] UNK Active 04/28/2016 [facility] DX: ROUTINE SCREENING Active 02/26/2016 [facility] Obesity Active Problem 08/22/2016 [facility] Knee pain Active Problem 08/22/2016 [facility] Benign essential HTN Active Problem 08/22/2016 [facility] Low serum vitamin D Active Problem 08/22/2016 [facility] DM type 2 with diabetic peripheral neuropathy Active Problem 08/22/2016 [facility] Major depression Active Problem 08/22/2016 [facility] Hyperlipidemia, mixed Active Problem 08/22/2016 [facility] Thyroid disorder screen Active Problem 08/22/2016 [facility] Diabetes Active Problem 08/22/2016 [facility] Acid reflux Active Problem 08/22/2016 [facility] Hypertension Active Problem 08/22/2016 [facility] Language Barrier Active Problem 08/22/2016 [facility] Fever Active Problem 08/22/2016 [facility] Hyperlipemia Resolved Problem 08/22/2016 [facility] Frequent urination Active Problem 08/22/2016 [facility] PNEUMONIA, UNSPECIFIED ORGANISM Active [facility] URINARY TRACT INFECTION, SITE NOT SPECIF Active [facility] Medications Medication Details Route Status Patient Instructions Ordering Provider Order Date Source RN-Do not give vanc till trough drawn08/19/16@15:30 RN-Do not give vanc till trough drawn08/19/16@15:30, Attn:KEKE, Drug form: MISC, Route: MISC, ONCE, 08/19/16 15:00:00 CDT, Stop date: 08/19/16 15:00:00 CDT Inactive 08/19/2016 [facility] Levofloxacin 750 MG Oral Tablet [Levaquin] 750 mg=1 tab, PO, Q24H, X 7 day, # 7 tab, 0 Refill(s) Active 08/19/2016 [facility] Amoxicillin 875 MG / Clavulanate 125 MG Oral Tablet [Augmentin 875-mg] 875 mg=1 tab, PO, Q12H, X 7 day, # 14 tab, 0 Refill(s) Active 08/19/2016 [facility] potassium chloride 40 mEq, 2 tab, Route: PO, Drug form: ERTAB, ONCE, Dosing Weight 71.818, kg, Start date: 08/19/16 8:23:00 CDT, Stop date: 08/19/16 8:23:00 CDTNotes: (Same as: K-Dur 20) "Do Not Crush" With food and full glass of water Inactive 08/19/2016 [facility] Tessalon Perles 200 mg, 2 cap, Route: PO, Drug form: CAP, TID, Dosing Weight 71.818, kg, PRN Cough, Start date: 08/18/16 13:44:00 CDT, Duration: 30 day, Stop date: 09/17/16 13:43:00 CDTNotes: (Same As: Tessalon Whitney es) "Do Not Crush" No Longer Active 08/18/2016 [facility] Lactulose 667 MG/ML Oral Solution 20 gm, 30 mL, Route: PO, Drug form: SYRP, ONCE, Dosing Weight 71.818, kg, Start date: 08/18/16 13:44:00 CDT, Stop date: 08/18/16 13:44:00 CDTNotes: (Same as:Chronulac) Inactive 08/18/2016 [facility] potassium chloride 40 mEq, 2 tab, Route: PO, Drug form: ERTAB, ONCE, Dosing Weight 71.818, kg, Start date: 08/18/16 8:45:00 CDT, Stop date: 08/18/16 8:45:00 CDTNotes: (Same as: K-Dur 20) "Do Not Crush" With food and full glass of water Inactive 08/18/2016 [facility] vancomycin 1.25 gm, 250 mL, Route: IVPB, Drug form: INJ, [id number], Start date: 08/18/16 4:00:00 CDT, Duration: 30 day, Stop date: 09/16/16 16:00:00 CDT, ABX Indication: PneumoniaNotes: TIME CRITICAL MEDICATION Same as: Vancocin-NS (premixed) Infusion rate 2001 mg: infuse over 2.5 hours No Longer Active 08/18/2016 [facility] Vancomycin 1 ea, Route: MISC, ONCALL, Dosing Weight 71.818, kg, Start date: 08/17/16 16:00:00 CDT, day, Stop date: 08/17/16 16:00:00 CDT, Pharmacy to dose, ABX Indication: Pneumonia Inactive 08/17/2016 [facility] vancomycin + sodium chloride 0.9% 500 mL INJ (for IV set) 500 mL 1,750 mg, Route: IVPB, ONCE, Start date: 08/17/16 16:00:00 CDT, Stop date: 08/17/16 16:00:00 CDT, ABX Indication: PneumoniaNotes: TIME CRITICAL MEDICATION (Same As: Vancocin) Infusion rate 2001 mg: infuse over 2.5 hours MEDICATION WASTE Product Size: 1000 mg Product Wasted: ___ mg Inactive 08/17/2016 [facility] Lasix 20 mg, 2 mL, Route: IVP, Drug form: INJ, ONCE, Dosing Weight 71.818, kg, Start date: 08/17/16 15:02:00 CDT, Stop date: 08/17/16 15:02:00 CDTNotes: (Same as: Lasix) Inactive 08/17/2016 [facility] Cozaar 50 mg, 1 tab, Route: PO, Drug form: TAB, Daily, Start date: 08/17/16 9:00:00 CDT, Duration: 30 day, Stop date: 09/15/16 9:00:00 CDTNotes: (Same as: Cozaar) No Longer Active 08/17/2016 [facility] hydrochlorothiazide 25 mg oral tablet 12.5 mg, 1 tab, Route: PO, Drug form: TAB, Daily, Start date: 08/17/16 9:00:00 CDT, Duration: 30 day, Stop date: 09/15/16 9:00:00 CDTNotes: (Same as: Hydrodiuril). Give with food. No Longer Active 08/17/2016 [facility] Hydrochlorothiazide 12.5 MG / Losartan Potassium 50 MG Oral Tablet 1 tab, Route: PO, Drug Form: TAB, Dosing Weight 71.818, kg, Daily, Start date: 08/17/16 9:00:00 CDT, Duration: 30 day, Stop date: 09/15/16 9:00:00 CDT No Longer Active 08/17/2016 [facility] Azithromycin 500 mg, Route: IVPB, [id number], Dosing Weight 71.818, kg, Start date: 08/16/16 23:00:00 CDT, Duration: 5 day, Stop date: 08/20/16 23:00:00 CDT, ABX Indication: PneumoniaNotes: (Same As: Zithromax IV) Inactive 08/17/2016 [facility] Zocor 40 mg, 1 tab, Route: PO, Drug form: TAB, Bedtime, Start date: 08/16/16 21:00:00 CDT, Duration: 30 day, Stop date: 09/14/16 21:00:00 CDTNotes: (Same as: Zocor) No Longer Active 08/17/2016 [facility] ezetimibe 10 MG / Simvastatin 40 MG Oral Tablet 1 tab, Route: PO, Dosing Weight 71.818, kg, Bedtime, Start date: 08/16/16 21:00:00 CDT, Duration: 30 day, Stop date: 09/14/16 21:00:00 CDT Inactive 08/17/2016 [facility] ezetimibe 10 mg, 1 tab, Route: PO, Drug form: TAB, Bedtime, Start date: 08/16/16 21:00:00 CDT, Duration: 30 day, Stop date: 09/14/16 21:00:00 CDTNotes: (Same as: Zetia) No Longer Active 08/17/2016 [facility] Rocephin 1 gm, Route: IVPB, [id number], Dosing Weight 71.818, kg, Start date: 08/16/16 21:00:00 CDT, Duration: 7 day, Stop date: 08/22/16 21:00:00 CDT, ABX Indication: PneumoniaNotes: (Same As: Rocephin). Use with 100 mL NS and infuse over 30 min MEDICATION WASTE Product Size: 1000 mg Product Wasted: ___ mg Inactive 08/17/2016 [facility] Aspirin 81 mg, 1 tab, Route: PO, Drug form: CHEWTAB, Daily, Dosing Weight 71.818, kg, Start date: 08/16/16 15:00:00 CDT, Duration: 30 day, Stop date: 09/15/16 9:00:00 CDTNotes: Take with food. No Longer Active 08/16/2016 [facility] Sertraline 50 mg, 1 tab, Route: PO, Drug form: TAB, Daily, Dosing Weight 71.818, kg, Start date: 08/16/16 14:30:00 CDT, Duration: 30 day, Stop date: 09/15/16 9:00:00 CDTNotes: (Same as: Zoloft) No Longer Active 08/16/2016 [facility] Insulin, Aspart, Human 4 unit, 0.04 mL, Route: SUB-Q, Drug form: SOLN, Bedtime, Dosing Weight 71.818, kg, PRN Blood Glucose Results, Start date: 08/16/16 14:03:00 CDT, Duration: 30 day, Stop date: 09/15/16 14:02:00 CDTNotes: Roll in palms of hands gently; Do not shake vigorously. (Same as: NovoLOG) "single patient use only" WASTE: F/P - Black; E - Municipal Trash Bin Stable for 28 days at room temperature. Expires in days from Date No Longer Active 08/16/2016 [facility] Dextrose 50% Syringe 12.5 gm, 25 mL, Route: IVP, Drug Form: INJ, Dosing Weight 71.818, kg, PRN, PRN Blood Glucose Results, Start date: 08/16/16 14:03:00 CDT, Duration: 30 day, Stop date: 09/15/16 14:02:00 CDT No Longer Active 08/16/2016 [facility] Glucagon 1 mg, Route: IM, Drug form: PDR/INJ, PRN, Dosing Weight 71.818, kg, PRN Blood Glucose Results, Start date: 08/16/16 14:03:00 CDT, Duration: 30 day, Stop date: 09/15/16 14:02:00 CDT No Longer Active 08/16/2016 [facility] Guaifenesin 20 MG/ML Oral Solution [Robitussin] 100 mg, 5 mL, Route: PO, Drug form: LIQ, Q4H, Dosing Weight 71.818, kg, PRN Cough, Start date: 08/16/16 14:01:00 CDT, Duration: 30 day, Stop date: 09/15/16 14:00:00 CDTNotes: (Same as: Robitussin) No Longer Active 08/16/2016 [facility] Levaquin 750 mg, 150 mL, Route: IVPB, Drug form: SOLN, [id number], Dosing Weight 71.818, kg, For CrCl > 49ml/min, Start date: 08/16/16 14:00:00 CDT, Duration: 7 day, Stop date: 08/22/16 14:00:00 CDT, ABX Indication: PneumoniaNotes: (Same as:Levaquin) No Longer Active 08/16/2016 [facility] pneumococcal capsular polysaccharide type 1 vaccine / pneumococcal capsular polysaccharide type 10A vaccine / pneumococcal capsular polysaccharide type 11A vaccine / pneumococcal capsular polysaccharide type 12F vaccine / pneumococcal capsular polysacchar 0.5 mL, Route: IM, Drug Form: INJ, Daily, Start date: 08/16/16 9:00:00 CDT, Stop date: 08/16/16 17:00:00 CDTNotes: (Same as: Pneumovax 23) Refrigerate Inactive 08/16/2016 [facility] Hydrochlorothiazide 12.5 MG / Losartan Potassium 50 MG Oral Tablet 1 tab, PO, Daily, 0 Refill(s) Active 08/16/2016 [facility] Sodium Chloride 0.154 MEQ/ML Injectable Solution 1,000 mL, Rate: 75 ml/hr, Infuse over: 13.3 hr, Route: IV, Dosing Weight 71.818 kg, Total Volume: 1,000, Start date: 08/16/16 0:16:00 CDT, Duration: 30 day, Stop date: 09/15/16 0:15:00 CDT No Longer Active 08/16/2016 [facility] Saline Flush 0.9% 10 ml, Route: IVP, Drug Form: INJ, Dosing Weight 71.818, kg, PRN, PRN Line Flush, Start date: 08/16/16 0:16:00 CDT, Duration: 30 day, Stop date: 09/15/16 0:15:00 CDTNotes: (Same as: BD Posiflush) No Longer Active 08/16/2016 [facility] Ondansetron 4 mg, 2 mL, Route: IVP, Drug form: INJ, Q6H, Dosing Weight 71.818, kg, PRN Nausea & Vomiting, Start date: 08/16/16 0:16:00 CDT, Duration: 30 day, Stop date: 09/15/16 0:15:00 CDTNotes: (Same as: Sandra) MEDICATION WASTE Product Size: 4 mg Product Wasted: ___ mg No Longer Active 08/16/2016 [facility] Acetaminophen 650 mg, 2 tab, Route: PO, Drug form: TAB, Q4H, Dosing Weight 71.818, kg, PRN Pain 1-3/Temp > 100.4 F, Start date: 08/16/16 0:16:00 CDT, Duration: 30 day, Stop date: 09/15/16 0:15:00 CDTNotes: Do not exceed 4 gm/day. (Same as: Tylenol) No Longer Active 08/16/2016 [facility] Sodium Chloride 0.9% IV 1000 mL 1,000 mL, Rate: 1,000 ml/hr, Infuse over: 1 hr, Route: IV, Dosing Weight 71.818 kg, Total Volume: 1,000, Priority: STAT, Start date: 08/15/16 23:07:00 CDT, Duration: 1 doses or times, Stop date: 08/16/16 0:06:00 CDT Inactive 08/16/2016 [facility] Reglan 10 mg, Route: IVP, Drug form: INJ, ONCE, Dosing Weight 71.818, kg, Priority: STAT, Start date: 08/15/16 21:39:00 CDT, Stop date: 08/15/16 21:39:00 CDT Inactive 08/16/2016 [facility] azithromycin 500 mg oral tablet 500 mg, Route: PO, Drug form: TAB, ONCE, Dosing Weight 71.818, kg, Start date: 08/15/16 21:38:00 CDT, Duration: 1 doses or times, Stop date: 08/15/16 21:38:00 CDT, ABX Indication: Pneumonia Inactive 08/16/2016 [facility] Ceftriaxone 1 gm, Route: IVPB, Drug form: PDR/INJ, ONCE, Dosing Weight 71.818, kg, Priority: STAT, Start date: 08/15/16 21:38:00 CDT, Duration: 1 doses or times, Stop date: 08/15/16 21:38:00 CDT, ABX Indication: Pneumonia Inactive 08/16/2016 [facility] Acetaminophen 1,000 mg, 2 tab, Route: PO, Drug form: TAB, ONCE, Dosing Weight 71.818, kg, Priority: STAT, Start date: 08/15/16 20:27:00 CDT, Stop date: 08/15/16 20:27:00 CDTNotes: Max acetaminophen 4000 mg/day (4 gm/day). (Same as: Tylenol Extra Strength) Inactive 08/16/2016 [facility] Motrin 400 mg, 1 tab, Route: PO, Drug form: TAB, ONCE, Dosing Weight 71.818, kg, Priority: STAT, Start date: 08/15/16 20:27:00 CDT, Stop date: 08/15/16 20:27:00 CDTNotes: (Same as: Motrin) "Do Not Crush" Give with food. Inactive 08/16/2016 [facility] Sodium Chloride 0.154 MEQ/ML Injectable Solution 1,000 mL, Rate: 25 ml/hr, Infuse over: 40 hr, Route: IV, Dosing Weight 73.239 kg, Total Volume: 1,000, Start date: 07/02/16 7:12:00 CDT, Duration: 30 day, Stop date: 08/01/16 7:11:00 CDT Inactive 07/02/2016 [facility] Aspirin 81 mg, PO, Daily, 0 Refill(s) Active 06/28/2016 [facility] Allergies, Adverse Reactions, Alerts Substance Category Reaction Severity Reaction type Status Date Reported Comments Source Immunizations Immunization Date Given Site Status Last Updated Comments Source pneumococcal 23-valent vaccine 08/17/2016 Not Given [facility] Results Order Name Results Value Reference Range Date Interpretation Comments Source ELECTROLYTES AGAP 10.4 meq/L 10.0 - 20.0 08/19/2016 [facility] ELECTROLYTES eGFR 96 mL/min/1.73m2 08/19/2016 Result Comment: The eGFR is calculated using the [...] from the National Kidney Disease Education Program (NKDEP) which additionally recommends that when the eGFR is used in patients with extremes of body mass index for purposes of drug dosing, the eGFR should be multiplied by the estimated BMI. [facility] ELECTROLYTES Calcium Lvl 9.3 mg/dL 8.5 - 10.5 08/19/2016 [facility] ELECTROLYTES Chloride Lvl 104 meq/L 95 - 109 08/19/2016 [facility] ELECTROLYTES CO2 29 meq/L 24 - 32 08/19/2016 [facility] ELECTROLYTES Potassium Lvl 3.4 meq/L 3.5 - 5.1 08/19/2016 [facility] ELECTROLYTES Sodium Lvl 140 meq/L 135 - 145 08/19/2016 [facility] ELECTROLYTES Glucose Lvl 105 mg/dL 70 - 99 08/19/2016 [facility] ELECTROLYTES Creatinine Lvl 0.63 mg/dL 0.50 - 1.40 08/19/2016 [facility] ELECTROLYTES BUN 13 mg/dL 7 - 22 08/19/2016 [facility] [place] MCHC 33.3 g/dL 32.0 - 36.0 08/19/2016 [facility] [place] Hct 29.3 % 36.0 - 48.0 08/19/2016 [facility] [place] Hgb 9.8 g/dL 12.0 - 16.0 08/19/2016 [facility] [place] RBC 3.41 M/CMM 4.20 - 5.40 08/19/2016 [facility] [place] MCH 28.6 pg 27.0 - 31.0 08/19/2016 [facility] [place] MCV 85.9 fL 80.0 - 98.0 08/19/2016 [facility] [place] RDW 14.1 % 11.5 - 14.5 08/19/2016 [facility] [place] MPV 8.5 fL 7.4 - 10.4 08/19/2016 [facility] HEMATOLOGY Platelet 286 K/CMM 133 - 450 08/19/2016 [facility] HEMATOLOGY WBC 7.3 K/CMM 3.7 - 10.4 08/19/2016 [facility] CHEM PANEL eGFR 94 mL/min/1.73m2 08/18/2016 Result Comment: The eGFR is calculated using the [...] from the National Kidney Disease Education Program (NKDEP) which additionally recommends that when the eGFR is used in patients with extremes of body mass index for purposes of drug dosing, the eGFR should be multiplied by the estimated BMI. [facility] CHEM PANEL Calcium Lvl 8.9 mg/dL 8.5 - 10.5 08/18/2016 [facility] CHEM PANEL AGAP 12.1 meq/L 10.0 - 20.0 08/18/2016 [facility] CHEM PANEL CO2 28 meq/L 24 - 32 08/18/2016 [facility] CHEM PANEL Chloride Lvl 102 meq/L 95 - 109 08/18/2016 [facility] CHEM PANEL Potassium Lvl 3.1 meq/L 3.5 - 5.1 08/18/2016 [facility] CHEM PANEL Sodium Lvl 139 meq/L 135 - 145 08/18/2016 [facility] CHEM PANEL Creatinine Lvl 0.69 mg/dL 0.50 - 1.40 08/18/2016 [facility] CHEM PANEL BUN 14 mg/dL 7 - 22 08/18/2016 [facility] CHEM PANEL Glucose Lvl 120 mg/dL 70 - 99 08/18/2016 [facility] HEMATOLOGY MCV 85.2 fL 80.0 - 98.0 08/18/2016 [facility] [place] MCH 28.9 pg 27.0 - 31.0 08/18/2016 [facility] [place] MCHC 33.9 g/dL 32.0 - 36.0 08/18/2016 [facility] [place] RDW 14.0 % 11.5 - 14.5 08/18/2016 [facility] [place] Platelet 222 K/CMM 133 - 450 08/18/2016 [facility] [place] MPV 8.6 fL 7.4 - 10.4 08/18/2016 [facility] [place] Hct 27.8 % 36.0 - 48.0 08/18/2016 [facility] [place] Hgb 9.4 g/dL 12.0 - 16.0 08/18/2016 [facility] [place] RBC 3.27 M/CMM 4.20 - 5.40 08/18/2016 [facility] [place] WBC 6.8 K/CMM 3.7 - 10.4 08/18/2016 [facility] ELECTROLYTES AGAP 11.5 meq/L 10.0 - 20.0 08/17/2016 [facility] ELECTROLYTES Sodium Lvl 136 meq/L 135 - 145 08/17/2016 [facility] ELECTROLYTES Potassium Lvl 3.5 meq/L 3.5 - 5.1 08/17/2016 [facility] ELECTROLYTES Calcium Lvl 9.4 mg/dL 8.5 - 10.5 08/17/2016 [facility] ELECTROLYTES CO2 27 meq/L 24 - 32 08/17/2016 [facility] ELECTROLYTES Chloride Lvl 101 meq/L 95 - 109 08/17/2016 [facility] eGFR 94 mL/min/1.73m2 08/17/2016 Result Comment: The eGFR is calculated using the [...] from the National Kidney Disease Education Program (NKDEP) which additionally recommends that when the eGFR is used in patients with extremes of body mass index for purposes of drug dosing, the eGFR should be multiplied by the estimated BMI. [facility] ELECTROLYTES BUN 14 mg/dL 7 - 22 08/17/2016 [facility] ELECTROLYTES Creatinine Lvl 0.69 mg/dL 0.50 - 1.40 08/17/2016 [facility] ELECTROLYTES Glucose Lvl 90 mg/dL 70 - 99 08/17/2016 [facility] [place] MPV 8.3 fL 7.4 - 10.4 08/17/2016 [facility] HEMATOLOGY Platelet 225 K/CMM 133 - 450 08/17/2016 [facility] HEMATOLOGY Hct 28.9 % 36.0 - 48.0 08/17/2016 [facility] HEMATOLOGY MCV 86.0 fL 80.0 - 98.0 08/17/2016 [facility] [place] Hgb 9.6 g/dL 12.0 - 16.0 08/17/2016 [facility] [place] RBC 3.36 M/CMM 4.20 - 5.40 08/17/2016 [facility] [place] RDW 14.2 % 11.5 - 14.5 08/17/2016 [facility] [place] MCH 28.5 pg 27.0 - 31.0 08/17/2016 [facility] [place] MCHC 33.1 g/dL 32.0 - 36.0 08/17/2016 [facility] [place] WBC 7.9 K/CMM 3.7 - 10.4 08/17/2016 [facility] CARDIAC ENZYMES Troponin-I null 0.00 - 0.40 08/16/2016 [facility] CARDIAC ENZYMES Troponin-I null 0.00 - 0.40 08/16/2016 [facility] CHEM PANEL Globulin 4.5 g/dL 2.7 - 4.2 08/16/2016 [facility] CHEM PANEL B/C Ratio 21 6 - 25 08/16/2016 [facility] CHEM PANEL A/G Ratio 0.6 0.7 - 1.6 08/16/2016 [facility] CHEM PANEL Bili Total 0.3 mg/dL 0.2 - 1.3 08/16/2016 [facility] CHEM PANEL Alk Phos 130 unit/L 39 - 136 08/16/2016 [facility] CHEM PANEL Albumin Lvl 2.6 g/dL 3.5 - 5.0 08/16/2016 [facility] CHEM PANEL Total Protein 7.1 g/dL 6.4 - 8.4 08/16/2016 [facility] CHEM PANEL AST 71 unit/L 0 - 37 08/16/2016 [facility] CHEM PANEL ALT 54 unit/L 0 - 65 08/16/2016 [facility] HEMATOLOGY Eosinophils # 0.1 K/CMM 0.0 - 0.5 08/16/2016 [facility] HEMATOLOGY Basophils # 0.1 K/CMM 0.0 - 0.2 08/16/2016 [facility] HEMATOLOGY Monocytes # 1.0 K/CMM 0.0 - 0.8 08/16/2016 [facility] HEMATOLOGY Segs-Bands # 11.0 K/CMM 1.5 - 8.1 08/16/2016 [facility] HEMATOLOGY Eosinophils 0.4 % 0.0 - 4.0 08/16/2016 [facility] HEMATOLOGY Lymphocytes # 2.5 K/CMM 1.0 - 5.5 08/16/2016 [facility] HEMATOLOGY Basophils 0.7 % 0.0 - 1.0 08/16/2016 [facility] HEMATOLOGY Monocytes 6.8 % 2.0 - 12.0 08/16/2016 [facility] HEMATOLOGY Lymphocytes 16.8 % 20.0 - 40.0 08/16/2016 [facility] HEMATOLOGY Segs 75.3 % 45.0 - 75.0 08/16/2016 [facility] URINE AND STOOL UA Urobilinogen <=1.0 mg/dL 0.1 - 1.0 08/16/2016 [facility] URINE AND STOOL UA Protein Negative mg/dL Negative mg/dL 08/16/2016 [facility] URINE AND STOOL UA Glucose Negative mg/dL Negative mg/dL 08/16/2016 [facility] URINE AND STOOL UA Ketones Negative mg/dL Negative mg/dL 08/16/2016 [facility] URINE AND STOOL UA Bacteria Occasional /HPF None Seen /HPF 08/16/2016 [facility] URINE AND STOOL UA Hyal Cast 5 /LPF 0 - 2 08/16/2016 [facility] URINE AND STOOL UA RBC 17 /HPF 0 - 2 08/16/2016 [facility] URINE AND STOOL UA Bili Negative *NA* (08/15/16 10:16 PM) Negative 08/16/2016 [facility] URINE AND STOOL UA Blood Large *ABN* (08/15/16 10:16 PM) Negative 08/16/2016 [facility] URINE AND STOOL UA Nitrite Negative (08/15/16 10:16 PM) Negative 08/16/2016 [facility] URINE AND STOOL UA Color Yellow *NA* (08/15/16 10:16 PM) Yellow 08/16/2016 [facility] URINE AND STOOL UA Spec Grav 1.016 <=1.030 08/16/2016 [facility] URINE AND STOOL UA Turbidity Clear (08/15/16 10:16 PM) Clear 08/16/2016 [facility] URINE AND STOOL UA pH 5.0 5.0 - 8.0 08/16/2016 [facility] URINE AND STOOL UA Leuk Est Large *ABN* (08/15/16 10:16 PM) Negative 08/16/2016 [facility] URINE AND STOOL UA Sq Epi Occasional /LPF Few /LPF 08/16/2016 [facility] URINE AND STOOL UA WBC 77 /HPF 0 - 5 08/16/2016 [facility] CARDIAC ENZYMES Troponin-I null 0.00 - 0.40 08/16/2016 [facility] CARDIAC ENZYMES Total CK 97 unit/L 12 - 191 08/16/2016 [facility] CHEM PANEL Lactic Acid Lvl 0.9 mMol/L 0.5 - 2.2 08/16/2016 [facility] CHEM PANEL A/G Ratio 0.7 0.7 - 1.6 08/16/2016 [facility] CHEM PANEL Globulin 4.4 g/dL 2.7 - 4.2 08/16/2016 [facility] CHEM PANEL B/C Ratio 18 6 - 25 08/16/2016 [facility] CHEM PANEL Bili Total 0.3 mg/dL 0.2 - 1.3 08/16/2016 [facility] CHEM PANEL Alk Phos 136 unit/L 39 - 136 08/16/2016 [facility] CHEM PANEL AST 65 unit/L 0 - 37 08/16/2016 [facility] CHEM PANEL ALT 54 unit/L 0 - 65 08/16/2016 [facility] CHEM PANEL Albumin Lvl 3.0 g/dL 3.5 - 5.0 08/16/2016 [facility] CHEM PANEL Total Protein 7.4 g/dL 6.4 - 8.4 08/16/2016 [facility] HEMATOLOGY Basophils # 0.1 K/CMM 0.0 - 0.2 08/16/2016 [facility] HEMATOLOGY Segs-Bands # 6.7 K/CMM 1.5 - 8.1 08/16/2016 [facility] HEMATOLOGY Basophils 0.6 % 0.0 - 1.0 08/16/2016 [facility] HEMATOLOGY Monocytes # 0.7 K/CMM 0.0 - 0.8 08/16/2016 [facility] HEMATOLOGY Lymphocytes # 1.7 K/CMM 1.0 - 5.5 08/16/2016 [facility] HEMATOLOGY Monocytes 7.5 % 2.0 - 12.0 08/16/2016 [facility] HEMATOLOGY Lymphocytes 18.8 % 20.0 - 40.0 08/16/2016 [facility] HEMATOLOGY Eosinophils 0.2 % 0.0 - 4.0 08/16/2016 [facility] HEMATOLOGY Segs 72.9 % 45.0 - 75.0 08/16/2016 [facility] VIRAL - SEROLOGY Influ A Negative (08/15/16 9:17 PM) Negative 08/16/2016 [facility] VIRAL - SEROLOGY Influ B Negative (08/15/16 9:17 PM) Negative 08/16/2016 [facility] Chest 2 views DX Chest 2 views DX Patient Name: CRISTINO ABARCA : 1955; Age: 60 years y/o Female MR: [id number] * CHEST, 2 views HISTORY:, Fever, concern for pneumonia. COMPARISON: 02/10/2012. A study of 11/08/2006 was also reviewed. TECHNIQUE: Frontal and lateral radiographs of the chest were obtained. IMPRESSION: 1. There is extensive left upper lobe/lingular pneumonia. There is extensive opacity in the lingula. 2. Right lung is clear. There are no pleural effusions. 3. The heart is normal in size. There is no evidence of failure. SL: RAMONA 08/15/2016 - - Read by: Dave Ulloa MD Dictated Date/time: 08/15/16 20:52 Electronically Signed by: Dave Ulloa MD 08/15/16 20:54 FINAL REPORT [facility] ELECTROLYTES CO2 28 meq/L 24 - 32 06/28/2016 [facility] ELECTROLYTES AGAP 13.9 meq/L 10.0 - 20.0 06/28/2016 [facility] ELECTROLYTES Calcium Lvl 9.7 mg/dL 8.5 - 10.5 06/28/2016 [facility] ELECTROLYTES eGFR 96 mL/min/1.73m2 06/28/2016 Result Comment: The eGFR is calculated using the [...] from the National Kidney Disease Education Program (NKDEP) which additionally recommends that when the eGFR is used in patients with extremes of body mass index for purposes of drug dosing, the eGFR should be multiplied by the estimated BMI. [facility] ELECTROLYTES BUN 14 mg/dL 7 - 22 06/28/2016 [facility] ELECTROLYTES Creatinine Lvl 0.63 mg/dL 0.50 - 1.40 06/28/2016 [facility] ELECTROLYTES Chloride Lvl 102 meq/L 95 - 109 06/28/2016 [facility] ELECTROLYTES Sodium Lvl 140 meq/L 135 - 145 06/28/2016 [facility] ELECTROLYTES Potassium Lvl 3.9 meq/L 3.5 - 5.1 06/28/2016 [facility] ELECTROLYTES Glucose Lvl 108 mg/dL 70 - 99 06/28/2016 [facility] Knee 3 Views Bilateral DX Knee 3 Views Bilateral DX Study: Bilateral knees, 3 views Clinical Indication: Chronic bilateral knee pain Comparison: None FINDINGS: Right knee, 3 views: Moderate narrowing of the medial compartment of the joint space is associated with marginal osteophyte formation. Minor hypertrophic degenerative changes involve the patellofemoral articulation. No joint effusion is noted. Left knee, 4 views: There is slight narrowing of the medial compartment of the joint space with tiny marginal osteophyte formation. The patellofemoral articulation is not remarkable. No joint effusion is noted. IMPRESSION: Osteoarthritis, moderate on the right and mild on the left. SL: [id number] 05/27/2016 - - Read by: Leon Hayden MD Dictated Date/time: 05/27/16 14:37 Electronically Signed by: Leon Hayden MD 05/27/16 14:39 FINAL REPORT [facility] Digital Mammo Screening Jeffy OR Digital Mammo Screening Jeffy OR - DIGITAL MAMMO SCREENING JEFFY OR BILATERAL DIGITAL SCREENING MAMMOGRAM WITH CAD: 03/30/2016 Current study was evaluated with a Computer Aided Detection (CAD) system. Comparison is made to exam dated: 08/06/2011 mammogram. The tissue of both breasts is heterogeneously dense, which could obscure detection of small masses. There are benign calcifications in the left breast. There also are post operative findings in the left breast. No significant masses, calcifications, or other findings are seen in either breast. IMPRESSION: BENIGN There is no mammographic evidence of malignancy. A 1 year screening mammogram is recommended. SUMMARY: As the patient has dense breast parenchyma, this could obscure additional abnormalities. The patient would likely benefit from a supplemental screening test such as bilateral ultrasound. This should be discussed with the patient by the referring physician. Samantha zelaya/ara:04/23/2016 14:53:42 Tobacco Buyer: Yanely Ashyb, [facility] This exam was dictated and interpreted by [id number] for [facility]. letter sent: Normal [facility] Mammogram BI-RADS: 2 Benign 03/30/2016 - - Read by: Samantha Calloway MD Dictated Date/time: 04/23/16 14:53 Electronically Signed by: Samantha Calloway MD 04/23/16 14:53 FINAL REPORT [facility] Vital Signs Vital Sign Value Date Comments Source Respitory Rate 17 08/19/2016 [facility] Systolic (mm Hg) 132 08/19/2016 [facility] Diastolic (mm Hg) 69 08/19/2016 [facility] Heart Rate 70 08/19/2016 [facility] Temperature Oral (F) 98.0 F 08/19/2016 [facility] Weight 71.5 08/19/2016 [facility] Respitory Rate 17 08/19/2016 [facility] Systolic (mm Hg) 127 08/19/2016 [facility] Diastolic (mm Hg) 73 08/19/2016 [facility] Heart Rate 72 08/19/2016 [facility] Temperature Oral (F) 98.1 F 08/19/2016 [facility] Temperature Oral (F) 97.9 F 08/19/2016 [facility] Heart Rate 61 08/19/2016 [facility] Systolic (mm Hg) 96 08/19/2016 [facility] Diastolic (mm Hg) 59 08/19/2016 [facility] Respitory Rate 18 08/19/2016 [facility] Weight 71.818 08/16/2016 [facility] BMI Calculated 28.96 08/16/2016 [facility] Height 157.48 cm 08/16/2016 [facility] BMI Calculated 28.96 08/16/2016 [facility] Height 157.48 cm 08/16/2016 [facility] Systolic (mm Hg) 102 07/02/2016 [facility] Diastolic (mm Hg) 62 07/02/2016 [facility] Respitory Rate 19 07/02/2016 [facility] Systolic (mm Hg) 87 07/02/2016 [facility] Diastolic (mm Hg) 46 07/02/2016 [facility] Respitory Rate 17 07/02/2016 [facility] Systolic (mm Hg) 85 07/02/2016 [facility] Diastolic (mm Hg) 49 07/02/2016 [facility] Respitory Rate 16 07/02/2016 [facility] Height 157.48 cm 06/28/2016 [facility] Weight 73.239 06/28/2016 [facility] BMI Calculated 29.53 06/28/2016 [facility] Heart Rate 60 06/28/2016 [facility] Temperature Oral (F) 98.5 F 06/28/2016 [facility] Encounters Location Location Details Encounter Type Encounter Number Reason For Visit Attending Provider ADM Date DC Date Status Source Outpatient [id number] SARAH SPRAGUE 02/24/2016 [facility]patient [id number] SARAH SPRAGUE 03/08/2016 [facility] Outpatient [id number] Sarah Peña 03/30/2016 03/31/2016 [facility] Recurring [id number] Sarah Peña 04/07/2016 05/07/2016 [facility] Recurring [id number] Sarah Peña 05/19/2016 06/18/2016 [facility] Outpatient [id number] SARAH SPRAGUE 05/27/2016 [facility] Outpatient [id number] Sarah Peña 05/27/2016 05/28/2016 [facility] Bedded Outpatient [id number] Evelio Carrillo 07/02/2016 07/02/2016 [facility] Outpatient [id number] SARAH SPRAGUE 08/13/2016 [facility] Inpatient [id number] Evelio Baptiste 08/16/2016 08/19/2016 [facility] Outpatient [id number] SARAH SPRAGUE 08/27/2016 [facility] Outpatient [id number] SARAH SPRAGUE 10/07/2016 Active [facility] Procedures Procedure Code Date Perfomer Comments Source Papanicolaou smear taken [id number] 02/07/2015 [facility] Mammogram [id number] 02/07/2013 [facility] [id number] 02/07/2005 [facility] section [id number] [facility]
[2018-01-11] MEDS ORDERED: ACETAMINOPHEN 325 MG TAB PO STA (02:10)
--- NOTE | 2018-01-11 02:43 | Diagnostic Imaging Report ---
EXAMINATION: Head CT without contrast. HISTORY:Headache. COMPARISON:None. TECHNIQUE: Multidetector axial images were obtained from the foramen magnum to the vertex without contrast. The images were reconstructed using brain and bone algorithms. Thin section brain images were reformatted into coronal and sagittal planes. Dose modulation, iterative reconstruction, and/or weight based adjustment of the mA/kV was utilized to reduce the radiation dose to as low as reasonably achievable. Intravenous contrast: None IMAGE QUALITY: Acceptable. FINDINGS: Skull/scalp: No lytic or blastic. lesions. No surgical changes. Incidental 4 mm partially calcified subcutaneous soft tissue lesion in left posterior parieto-occipital calvarium possibly represents an epidermal inclusion cyst. Parenchyma: Nonspecific bilateral frontoparietal patchy white matter hypodensity are likely related to small vessel ischemic changes. No acute hemorrhage, mass or acute major vascular territorial infarct. Arteries: No density suggestive of thrombosis. Dural sinuses: No abnormal density suggestive of thrombosis. Ventricles: No hydrocephalus or displacement. Extra-axial spaces: No abnormal density. Brain volume: Normal for age. Craniocervical junction: No mass, Chiari malformation, or basilar invagination. Sella: No mass. Paranasal/mastoid sinuses: Mild mucosal thickening in left maxillary sinus. Moderate and near complete opacification of left ethmoid sinus. IMPRESSION: No acute intracranial abnormality. Mild supratentorial white matter microvascular ischemic changes and mild generalized cerebral volume loss. Signed by: Dr. Ca Calzada M.D. on 01/11/2018 2:40 AM
--- NOTE | 2018-01-11 03:11 | Diagnostic Imaging Report ---
CXR 2 VIEW - [facility], 01/11/2018 12:00 AM Technique: CXR 2 VIEW - [facility] Comparison: None available. Clinical history: Increased blood pressure, headache Findings: Mildly enlarged cardiac silhouette with prominent central pulmonary vasculature. No edema or consolidation. No effusion or pneumothorax. Impression: Mild cardiomegaly. Signed by: Dr Amber Packer MD on 01/11/2018 3:08 AM
[2018-01-11 03:16] VITALS: BP 133/65
== END 2018-01-11 03:30 | disposition home or self-care (01) ==
LOC: FSED 01:26
DX: R51 Headache (principal); J00 Acute nasopharyngitis [common cold]; I10 Essential (primary) hypertension; R73.03 Prediabetes; E78.5 Hyperlipidemia, unspecified
CPT/HCPCS: 70450; 71046; 80048; 85025; 87400; 99284